=== PATIENT | male | born 1965 | race Hispanic/Latino ===

== ENCOUNTER → 2025-02-18 13:04 | Outpatient (CLI) | payer MEDICARE, MEDICAID, SELFPAY | LOC: RESP 13:05 | PROVIDERS: Referring Provider Internal Medicine Critical Care Medicine; Visit Provider Internal Medicine Critical Care Medicine | DX: J84.9 Interstitial pulmonary disease, unspecified (principal); G47.33 Obstructive sleep apnea (adult) (pediatric); R94.2 Abnormal results of pulmonary function studies | CPT/HCPCS: 94060; 94726; 94729 ==